=== PATIENT | female | born 1950 | race Caucasian/White ===

== ENCOUNTER 2016-11-18 08:16 | Emergency (ER) | payer BC ==
--- NOTE | 2016-12-06 11:50 | ER ---
ADMIT: 11/18/2016 RM/LOC: ER [facility] MR#: [id number] [facility] [place], [place] [id number] JANIE CONWAY [address] [place] [id number] Emergency Room Report SEX: F AGE: 66 : 1950 DATE: 11/18/2016 ADDENDUM: A 66-year-old white female, coming in with kind of stroke-like symptoms, appeared to be more TIA in nature. Her stroke scale was 2 at the most. She was clearing while she was here. CT scan was negative. An MRI was obtained today and that was negative as well. CBC, chemistry, EKG, we do not see anything acute at this time. I discharged her home on baby aspirin, counseled her on stop smoking and then, she needs to see Dr. Bynum this week. CONDITION ON DISCHARGE: Good. Tor Aragon MD/ bobo JOB #: [id number] CC: Tor Aragon MD, Attending Physician UNKNOWN, Family Physician
== END 2016-11-18 12:00 | disposition home or self-care (01) ==
LOC: ER 08:16
DX: G45.9 Transient cerebral ischemic attack, unspecified (principal); F17.200 Nicotine dependence, unspecified, uncomplicated; I10 Essential (primary) hypertension; Z79.899 Other long term (current) drug therapy

== ENCOUNTER → 2016-12-19 | Outpatient (CLI) | payer BC | END | disposition home or self-care (01) | LOC: RAD.S 09:25 | DX: Z12.31 Encounter for screening mammogram for malignant neoplasm of breast (principal) ==